=== PATIENT | male | born 1975 | race Caucasian/White ===

== ENCOUNTER 2018-10-06 10:55 | Outpatient (CLI) | payer OTHER | END 2018-10-06 10:56 | disposition critical access hospital (66) | LOC: EMS 10:55 | PROVIDERS: ATTEND Surgery | DX: M25.562 Pain in left knee (principal); W01.0XXA Fall on same level from slipping, tripping and stumbling without subsequent striking against object, initial encounter; Y93.01 Activity, walking, marching and hiking ==

== ENCOUNTER 2018-10-06 11:19 | Emergency (ER) | payer OTHER ==
[2018-10-06 11:26] VITALS: BP 161/92
--- NOTE | 2018-10-06 12:34 | XRAY Report ---
Reason: injury Procedure Date: 10/06/2018 Accession Number: [id number] / [id number] Procedure: XR - Knee 4 View LT CPT Code: FULL RESULT: EXAM: LEFT KNEE RADIOGRAPHY EXAM DATE: 10/06/2018 11:55 AM. CLINICAL HISTORY: Injury. Fall on bent leg. COMPARISON: None. TECHNIQUE: 4 views. FINDINGS: Bones: Superior patellar enthesophyte is noted. Well-corticated likely remote posttraumatic changes are seen at the proximal tip of the fibula. No acute fracture is visualized. Joints: There is a moderate size joint effusion. No dislocation or lipohemarthrosis. Soft Tissues: Abnormal appearance of the quadriceps tendon insertion region as seen on lateral radiograph, question quadriceps tear. IMPRESSION: Question quadriceps tear. RADIA
--- NOTE | 2018-10-06 13:48 | ED Physician Documentation ---
PD HPI LOWER EXT INJURY - Stated complaint Stated Complaint: L KNEE PX - Chief complaint Chief Complaint: Ext Problem - History obtained from History obtained from: Patient, Family () - History of Present Illness PD HPI LOW EXT INJURY LOCATION: Left, Knee Type of injury: Fall Where injury occurred: Park Timing - onset: How many hours ago (1) Worsened by: Moving, Other (weightbearing) Associated symptoms: Swelling Similar symptoms before: Has not had sx before - Additional information Additional information: The patient is a 43-year-old male who was playing Frisbee at [employer] when he stumbled running down a hill. He felt a pop in his left knee, and has had pain and inability of bear weight on his left leg since the incident occurred about one hour prior to arrival. He denies any other injuries. He denies any prior history of knee injury. Review of Systems Constitutional: denies: Fever Cardiac: denies: Chest pain / pressure Respiratory: denies: Dyspnea Musculoskeletal: reports: Joint pain (left knee) Neurologic: denies: Focal weakness, Numbness, Head injury PD PAST MEDICAL HISTORY - Present Medications Home Medications: Ambulatory Orders Medication Instructions Recorded Confirmed Oxycodone HCl/Acetaminophen 1 - 2 each PO Q6H PRN #20 tablet 10/06/18 [Percocet 5-325 mg Tablet] - Allergies Allergies/Adverse Reactions: Allergies Allergy/AdvReac Type Severity Reaction Status Date / Time Penicillins Allergy Unknown Verified 10/06/18 11:26 - Living Situation Living Situation: reports: With spouse/s.o. - Social History Does the pt smoke?: No Smoking Status: Never smoker PD ED PE NORMAL - Vitals Vital signs reviewed: Yes (hypertensive) - General General: Alert and oriented X 3, Well developed/nourished, Other (overweight) - HEENT HEENT: Atraumatic - Neck Neck: No bony TTP - Respiratory Respiratory: No respiratory distress - Derm Derm: No rash - Extremities Extremities: No edema, No calf tenderness / cord, Other (There is swelling in the suprapatellar aspect of the left knee, with associated tenderness to palpation. There is no tenderness in the popliteal fossa or along the joint lines. He is unable to flex his left knee more than 10 due to discomfort. There is no ligamentous instability detected. Distal neurovascular is intact.) - Neuro Neuro: Alert and oriented X 3, No motor deficit, No sensory deficit Results - Vitals Vitals: Oxygen O2 Source Room air - Rads (name of study) Left knee Radiology: Prelim report reviewed, EMP read contemporaneously, See rad report (Abnormal appearance near the quadriceps tendon insertion region seen on the lateral radiograph. Question quadriceps tear. Moderate size joint effusion.) U/S Left knee Radiology: Prelim report reviewed, See rad report (Near full-thickness quadriceps tendon tear near musculotendinous junction above patella.) Procedures - Splint (location) Knee immobilizer Splint applied by: Tech Type of splint: Other (knee immobilizer) Other: Patient tolerated well, No complications, Neurovascular intact, Crutches provided PD MEDICAL DECISION MAKING - ED course Complexity details: reviewed results, re-evaluated patient, considered differential, d/w patient, d/w family, d/w internet marketing consultant ED course: The patient's presentation is significant for left quadriceps near full- thickness tear, near the tendinous insertion above the patella, as seen on ultrasound. Treatment in the emergency department included application of a well padded knee immobilizer. Ibuprofen 800 mg was administered orally. Crutches were dispensed. I discussed the patient's condition with Dr. Caal who will see the patient in follow-up. I discussed with the patient and his symptomatic treatment, orthopedic follow-up, as well as potentially worrisome signs or symptoms that should prompt reevaluation in the emergency department. He is being discharged with prescription for Percocet, 20 tablets. Departure - Departure Disposition: 01 Home, Self Care Clinical Impression: Quadriceps tendon rupture Qualifiers: Encounter type: initial encounter Laterality: left Qualified Code(s): S76.112A - Strain of left quadriceps muscle, fascia and tendon, initial encounter Condition: Stable Instructions: ED Immobilizer Knee Prescriptions: Oxycodone HCl/Acetaminophen [Percocet 5-325 mg Tablet] 1 - 2 each PO Q6H PRN #20 tablet PRN Reason: pain Comments: Keep your left leg elevated as much of the time as possible. Apply ice pack to your knee intermittently for the next several days. You can use ibuprofen, up to 800 mg 3 times daily for anti-inflammatory effect. You can use Percocet as prescribed if needed for pain. Follow-up with the orthopedic surgeon as soon as possible. Call today to schedule an appointment. Return to the emergency department if you develop markedly increasing pain, or otherwise worsening symptoms. Discharge Date/Time: 10/06/18 14:28
--- NOTE | 2018-10-06 14:42 | Ultrasound Report ---
Reason: left knee/thigh; ? quadriceps tendon rupture. Procedure Date: 10/06/2018 Accession Number: [id number] / [id number] Procedure: US - Ext Limited Non Vascular CPT Code: FULL RESULT: EXAM: LIMITED LEFT THIGH ULTRASOUND EXAM DATE: 10/06/2018 01:25 PM. CLINICAL HISTORY: Left thigh/knee pain. Clinical concern for quadriceps tendon rupture. COMPARISON: Radiograph 10/06/2018. TECHNIQUE: Real-time scanning was performed with static images obtained. FINDINGS: There is a moderate joint effusion and the signature of the patella tendon is disrupted without complete retraction of musculature or complete loss of tension on the patella. Sonographically, no definite contiguity can be made between the patella and the quadriceps musculature, presumed near full-thickness tear. IMPRESSION: Near full-thickness quadriceps tear, new musculotendinous junction above patella. CRITICAL RESULT: The findings were discussed with Dr. Silva at 1:15 PM on 10/06/2018 at 1:15 PM BRENT
== END 2018-10-06 14:28 | disposition home or self-care (01) ==
LOC: EDBD → ED 11:19
DX: S76.112A Strain of left quadriceps muscle, fascia and tendon, initial encounter (principal); W17.81XA Fall down embankment (hill), initial encounter; Y93.74 Activity, frisbee; Y92.830 Public park as the place of occurrence of the external cause
CPT/HCPCS: 76882; 99283; 99284

== ENCOUNTER 2018-12-20 14:18 | Outpatient (CLI) | payer OTHER ==
[2018-12-20 15:24] VITALS: BP 167/116
--- NOTE | 2018-12-20 15:24 | SLEEP CARE CONSULTATION ---
Information from patient questionnaire entered by Priya Padilla. I have reviewed and concur with the information entered by Priya Padilla. This document represents the service I personally performed and the decisions made by me, Jeffrey Hines MD, [facility]. History of Present Illness Reason for Visit: New patient Chief Complaint: reports: Unrefreshed sleep, Snoring, Excessive daytime sleepiness, Observed pauses in breathing, Fatigue Duration of Symptoms: 5+ years Usual bedtime: 2300 Time it takes to fall asleep: 30-45 minutes Snores at night: Yes Observed to quit breathing while asleep: Yes Sleeps alone due to snoring: No Number of times waking at night: 2-4 Reasons for waking at night: reports: Choking, Gasping for air, Bathroom Toss, Turn, or Twitch while sleeping: Yes Recalls having dreams: Yes Usually gets out of bed at: 0700 Feels refreshed in the morning: No Morning headache: Yes Sleepy or fatigued during the day: Yes Ever fallen asleep while driving: Yes Takes day naps: Yes Dreams during day naps: Yes Prior sleep studies: No Additional HPI information: I had the pleasure of seeing Mr. Adam along with his today regarding the possibility of him having a sleep disorder. As you know, he is a 43 year old gentleman who complains of loud snore, observed apneas, unrefreshed sleep, persistent fatigue, and excessive daytime sleepiness for the past 5 years. The patient tells me that he normally goes to bed around 11 pm, and it takes him approximately 30 - 45 minutes to fall asleep. He has not been told that he snores loudly and irregularly at night. He has also never been observed to stop breathing in his sleep. His has to sleep in a separate room. She has obstructive sleep apnea-hypopnea but is not using CPAP. He can recall waking up on the average of 2 - 4 times during the night. Most of the time he wakes up because of his own snoring, choking, and having to gasp for air. There is a lot of tossing and turning in his sleep. No somniloquy (sleep talking) or somnambulism (sleep walking). Generally there is no recollection of dreams. In the morning he usually gets up out of the bed around 7 a.m. not feeling refreshed nor rested. He usually has morning headache that lasts several hours. During the day he complains of feeling sleepy and fatigued. His score on [place] Sleepiness Scale is 18 out of 24. He has fallen asleep while driving and has gone out of the mely. He usually takes naps during the day. Upon falling asleep during the day he reports having dreams. He reports having impaired concentration during the day. 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 Patient is and lives in [place]. Have you smoked in the past 12 months: No Alcohol use: Yes Alcohol amount and frequency: 12 oz twice/year Caffeine use: Yes Caffeine amount and frequency: 22oz coffee/day Family History Family history of sleep disordered breathing: Yes Family Hx Sleep Apnea: Mother: Snoring, Father: Snoring, Grandparent: Snoring Allergies and Home Medications Known drug allergies: Yes (penicillins) Drug allergies reviewed: Yes Home medication list reviewed: Yes Allergy and home medication list: Meds: hydroxyzine, Tylenol, aspirin Review of Systems Weight gain over past 5 years: 50 Weight loss over past 5 years: 40 Cardiovascular: denies: high blood pressure, palpitations, chest pain, irregular heart rate or pulse, leg or foot swelling, have to sleep sitting up, other Respiratory: denies: shortness of breath, wheeze, sputum production, chronic cough, other Gastrointestinal: reports: diarrhea Urinary: reports: urgency Neurological: reports: headaches Psychiatric: denies: Attention Deficit Hyperactivity, anxiety, depression, mood disorder, claustrophobia, other Ear/Nose/Throat: reports: nasal congestion, tonsillectomy Endocrine: denies: thyroid disease, history of goiter, sluggishness, too hot or cold, excessive thirst, increased appetite, increased urination, unexplained weakness, other Musculoskeletal: reports: joint pain, muscle pain or cramping, mobility problems Immunologic: reports: sneezing Physical Exam Vital signs obtained and entered by: Dr. Hines Blood Pressure: 167/116 Cuff size: regular Heart Rate: 104 O2 Saturation: 98 Height: 5 ft 9 in Weight: 320 lb (per patient) Body Mass Index: 47.2 BMI Classification: Obesity Class 3 Neck circumference: 20 Mood/affect: normal HEENT: No craniofacial malformation Nostrils: patent to airflow Turbinates: normal Septum: midline Mouth and throat: narrow oropharynx Soft palate: long Hard palate: normal Uvula: normal Uvula visualization: 25% Mallampati Class III Tongue: normal in size Tonsils: absent bilaterally Chin and jaw: normal size and position Neck: normal w/o lymphadenopathy or thyromegaly Heart: regular rate and rhythm Lungs: clear bilaterally Abdomen: soft, non-tender Extremities: 1+ edema Neurologic: intact, no focal deficits Impression and Plan IMPRESSION: 1. Obstructive Sleep Apnea-Hypopnea Syndrome, most likely severe, as suggested by history of loud and irregular snoring, observed cessation of breath while asleep, frequent awakenings during the night, morning headache, unrefreshed sleep, cognitive impairment, and daytime hypersomnolence. Narrow oropharynx and obesity are common predisposing factors for obstructive sleep apnea-hypopnea syndrome. Pathophysiology of sleep-disordered breathing was discussed. Untreated obstructive sleep apnea can also cause hypertension. I recommend proceeding to polysomnography to confirm the diagnosis and to assess severity. If he has significant sleep disordered breathing, a manual CPAP titration study will also be performed to find the optimal treatment pressure. I informed the p atient of what the sleep studies involve and after some discussion, he agreed to proceed. Plan: 1. Schedule polysomnography + manual CPAP titration study and return in 1 to 2 weeks after the study to discuss result and initiate therapy. 2. Avoid long distance driving or when feeling sleepy. 3. Avoid alcohol, sedative and muscle relaxant around bedtime. 4. Attempt to lose weight. I spent 100% of this 20 minute visit face to face with the patient with greater than 50% of this was spent time counseling the patient and coordination of care.
== END 2018-12-20 14:19 | disposition home or self-care (01) ==
LOC: SC 14:18
PROVIDERS: ATTEND Internal Medicine Pulmonary Disease
DX: G47.10 Hypersomnia, unspecified (principal); R06.81 Apnea, not elsewhere classified; G47.8 Other sleep disorders; R51 Headache; R41.89 Other symptoms and signs involving cognitive functions and awareness; R06.83 Snoring
CPT/HCPCS: 99203; 99212

== ENCOUNTER 2018-12-27 13:09 | Outpatient (CLI) | payer OTHER ==
--- NOTE | 2018-12-27 14:35 | SLEEP CARE CONSULTATION ---
Information from patient questionnaire entered by Priya Padilla. I have reviewed and concur with the information entered by Priya Padilla. This document represents the service I personally performed and the decisions made by me, Nida Perez RN, MSN, [employer]. History of Present Illness Accompanied by: Spouse Initial [place] Sleepiness Scale score: 18 Current [place] Sleepiness Scale score: 19 Additional HPI information: YOLANDA ALANIZ returns with spouse for follow up of the recently performed polysomnography and informed of findings. I explained the pathophysiology behind obstructive sleep apnea. We then spent quite a bit of time discussing different treatment options. For mild obstructive sleep apnea, surgery and oral appliance are alternatives to nasal CPAP therapy but in moderate or severe cases, nasal CPAP is the most effective a nd reliable treatment. I reviewed the impact of weight changes on sleep apnea and strongly recommended losing weight. After some discussion, the patient opted to go with the nasal CPAP therapy. I discussed how therapy can be initiated with a manual titration study or with autoCPAP. Patient chose nasal autoCPAP and will be ordered set at [id number] with rationale explained. A manual titration study will be ordered if unable to find optimal pressure with office adjustments. I explained how CPAP machine works with sample devices Respironics Dreamstation and ResMed [id number] and what to expect when using the machine. Using CPAP every night in order to get used to it was emphasized. Patient advised to put CPAP mask on before getting into bed so as not to fall asleep without CPAP. To assist acclimation to CPAP use, it could also be used for a short time during day while reading or watching TV. The patient was instructed to call the CPAP supplier to discuss any mechanical problem that may occur. If the mask given is uncomfortable or is difficult to keep on through the night even with adjustment, contact the CPAP supplier as many will replace with another mask style if notified before 30 days. If snoring or perceives is not getting enough air or too much air from the machine, notify this office. [facility] patient education PAP tips reviewed and given to patient. Patient prefers the Dreamstation CPAP. Patient counseled not drink alcohol less than 4 hours before bedtime as it can increase snoring and apnea. Patient was cautioned about risks of drowsy driving until sleepiness symptoms resolve. Patient denies drowsy driving but not driving currently due to leg . [facility] patient education on snoring and sleep apnea given and reviewed. Sleep Study - Polysomnography Polysomnography findings: The quality of the study is good. 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 The sleep architecture was abnormal for sleep fragmentation and reduced amount of time spent in REM and slow wave sleep (N3). Respiratory monitoring showed mild obstructive sleep apnea-hypopnea (AHI = 14.0) associated with frequent arousals, oxyhemoglobin desaturation and mild hypoxia (roseann oxygen saturation of 81%). The patient only slept supine during this study (supine AHI = 14.5; non-supine = 0.00). Snore was moderate to loud in intensity. There was moderate periodic limb movement of sleep contributing to the sleep fragmentation. Cardiac rhythm was normal sinus rhythm without significant arrhythmia. No abnormal behavior (parasomnia) observed during the night. Allergies and Home Medications Known drug allergies: Yes (penicillin) Home medication list reviewed: Yes Allergy and home medication list: Hydroxyzine 25mg bid for muscle spasms prn. Tylenol 650mg daily po. ASA 81mg daily Review of Systems Review of systems same as previous: Yes Physical Exam Blood Pressure: 160/84 (patient blood pressure range is 130-160 / 80 at home followed by PCP) Cuff size: long Heart Rate: 92 O2 Saturation: 98 Height: 5 ft 9 in Weight: 341 lb (with leg brace) Body Mass Index: 50.3 BMI Classification: Obesity Class 3 Impression and Plan 1. Obstructive Sleep Apnea-Hypopnea Syndrome, mild, with lowest oxygen saturation of 81%. Obviously this is the cause of the patients symptoms of unrefreshed sleep, and excessive daytime sleepiness. Positive pressure therapy could benefit his blood pressure elevations. As mentioned above, the patient will be started on nasal autoCPAP therapy with pressure set at 4-15 cmH2O. A manual titration study will be completed if unable to find optimal treatment pressure with office adjustments. Compliance guidelines also reviewed. A copy of compliance guidelines will be given for reference at check out. 2. Periodic limb movement, moderate , that did fragment patients sleep. Periodic limb movement of sleep (PLMS) is characterized by episodes of repetitive limb movements that occur during sleep and usually involve the lower limbs. The etiology is unknown but can be associated with restless leg syndrome (RLS), neuropathy, spinal cord diseases, kidney disease, rheumatological disorders, narcolepsy, obstructive sleep apnea, and REM sleep behavior disorder. Other factors that can increase PLMS and/or RLS are heredity and iron deficiency as reflected by a low serum ferritin level below 50 to 75mcg / L. Several medications can precipitate or aggravate PLMS such as selective serotonin re- uptake inhibitor antidepressants, tricyclic antidepressants, lithium, and dopamine receptor antagonists with the exception of bupropion. Caffeine can also aggravate PLMS and should be avoided. Sleep hygiene methods can also improve sleep as well as lifestyle changes such as regular exercise. Patient was advised that no treatment is needed at this time. On his sleep study hypnogram, his movements were one leg only and only later part of night. Patient states he was in more discomfort that night due to sleep position. As noted in history, he had repair of a tendon rupture of his left leg quadriceps recently. If symptoms increase, then further evaluation is indicated. * Nasal auto CPAP therapy, pressure at 4 -15 cm H2O. * Respironics device preferred by patient. * Attempt to lose weight. * Avoid alcohol consumption near bedtime. * The patient is again cautioned about driving until sleepiness completely resolves. * Return one month after CPAP obtained. I will assess response to therapy and compliance at that time. I spent 100% of this 35 minute visit face to face with the patient with greater than 50% of this was spent time counseling the patient and coordination of care.
[2018-12-27 17:38] VITALS: BP 160/84
== END 2018-12-27 13:10 | disposition home or self-care (01) ==
LOC: SC 13:09
PROVIDERS: ATTEND Nurse Practitioner Family
DX: G47.33 Obstructive sleep apnea (adult) (pediatric) (principal); G47.61 Periodic limb movement disorder; E66.9 Obesity, unspecified; Z68.43 Body mass index [BMI] 50.0-59.9, adult
CPT/HCPCS: 99212; 99214

== ENCOUNTER 2019-02-28 13:42 | Outpatient (CLI) | payer OTHER ==
--- NOTE | 2019-02-28 15:04 | SLEEP CARE CONSULTATION ---
Information from patient questionnaire entered by Venessa Carlson. I have reviewed and concur with the information entered by Venessa Carlson. This document represents the service I personally performed and the decisions made by me, Jeffrey Hines MD, [facility]. History of Present Illness Reason for follow up: first compliance Equipment type: CPAP Equipment obtained from: [employer] Mask style: Full face HPI additional information: HPI: Mr. Adam returned today for follow up of nasal CPAP therapy. He was diagnosed to have mild obstructive sleep apnea-hypopnea syndrome. The patient wears a full face mask. He reports using the device nightly and all through the night. The compliance report shows usage in 30 nights out of the past 30 nights, averaging 6.5 hours a night. The > 4 hour compliance rate for the past 30 days is 100%. He complained of no particular problem with the device such as soreness on the face, dry nose, epistaxis, nasal congestion or headache. He thinks that the pressure is comfortable. On the CPAP therapy he notices improvement in his sleep quality, and that he wakes up feeling fresher in the morning and more awake/alert during the day. [place] Sleepiness Scale score is 8. His notices rare snore through the CPAP. The average residual AHI is 1.4; and average time in large leak per day is 7 minutes. The 90th percentile pressure is 14.3 cmH2O. CPAP Compliance Data - Data Reviewed with Patient Average duration of nightly device use: 6.5 Compliance rate %: 100 Current pressure setting (cmH2O): 4-15 Humidity settin Heated hose settin Average residual AHI: 1.4 Average large leak: 7 min 6 sec Subjective Patient concerns: reports: mask discomfort, nasal congestion, dry mouth, nose, throat Initial [place] Sleepiness Scale score: 18 Current [place] Sleepiness Scale score: 8 Allergies and Home Medications Drug allergies reviewed: Yes Home medication list reviewed: Yes Allergy and home medication list: Current Medications: hydroxyzine, Tylenol, aspirin Allergies: penicillin Review of Systems Review of systems same as previous: Yes Physical Exam Height: 5 ft 9 in Weight: 320 lb Body Mass Index: 47.2 BMI Classification: Obesity Class 3 Impression and Plan IMPRESSION: 1. Obstructive Sleep Apnea-Hypopnea Syndrome, mild, with the patient doing well on nasal CPAP therapy. He has excellent compliance and significant clinical improvement. The current pressure appears effective and comfortable. His mask fits well. Overall, he is very satisfied with treatment and plans to continue with it long-term. No adjustment is necessary today. PLAN: 1. Continue with autoCPAP set at 4 - 15 cmH2O. 2. Try to lose weight 3. Try other masks and nasal pillows. Names given to the patient. 4. Raise the heated humidifier setting for nasal congestion. 4. Return in one year for follow up or earlier if there is any problem with the treatment. I spent 100% of this visit face to face with the patient with greater than 50% of this was spent time counseling the patient and coordination of care.
== END 2019-02-28 13:43 | disposition home or self-care (01) ==
LOC: SC 13:42
PROVIDERS: ATTEND Internal Medicine Pulmonary Disease
DX: G47.33 Obstructive sleep apnea (adult) (pediatric) (principal); E66.9 Obesity, unspecified; Z68.42 Body mass index [BMI] 45.0-49.9, adult
CPT/HCPCS: 99212; 99213